=== PATIENT | male | born 1950 | race Caucasian/White ===

== ENCOUNTER 2018-01-07 05:58 | Emergency (ER) ==
[2018-01-07 06:06] VITALS: BP 158/96; TEMP 97.5; BMI 32.5
[2018-01-07] MEDS ORDERED: NORFLEX IM STA (06:20)
[2018-01-07] MEDS ORDERED: TORADOL IM STA (06:21)
--- NOTE | 2018-01-07 07:32 | CT ---
EXAM: CT abdomen pelvis without contrast HISTORY: Right flank pain and trauma COMPARISON: None TECHNIQUE: Serial axial images of the abdomen pelvis were performed from the lung bases through the inferior pelvis without contrast. These were viewed in multiple planes. FINDINGS: Lung bases are clear. Evaluation is limited due to lack of contrast. The liver is unremarkable. The gallbladder is nondis tended. The adrenal glands are unremarkable. The kidneys are unremarkable without stone or hydronep hrosis. There is a low attenuation lesion in the left kidney measuring 1.3 cm in diameter with Houns field units suggestive of a cyst. The spleen is unremarkable. The pancreas is normal. The stomach is mildly distended. The small bowel in the abdomen pelvis is unremarkable. The colon demonstrates few moderate gas diste nded distal colon with no pneumatosis. The appendix is normal. There is no visualized obstruction o r abnormality of the colon. There is no free air or free fluid. There are few scattered mesenteric lymph nodes which are not enlarged. Urinary bladder is distended. The prostate is prominent. There is mild atherosclerotic disease. The osseous structures demonstrate scattered degenerative disease throughout the lumbosacral spine. IMPRESSION: 1. No acute abnormality or injury to account for patient's right flank pain. 2. Low attenuation lesion in the left kidney suggestive of a cyst. 3. Prostate is prominent. 4. 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
--- NOTE | 2018-01-07 07:41 | ED.PDOC ---
General ED Provider: Dr. JAZMYNE WARD Chief Complaint: Back Pain Stated Complaint: Fell few days ago started having back pain on the right flank. Time Seen by Physician: 06:10 Mode of Arrival: Ambulance Information Source: Patient, EMT Nursing and Triage Documentation Reviewed and Agree: Yes Does patient meet sepsis criteria?: No System Inflammatory Response Syndrome: Not Applicable Sepsis Protocol: For patient's 13 years and over: Temp is 96.8 and below OR 101 and greater Pulse >90 BPM Resp >20/minute Acutely Altered Mental Status Are patient's symptoms suggestive of a new infection, such as: -Pneumonia -Skin, Soft Tissue -Endocarditis -UTI -Bone, Joint Infection -Implantable Device -Acute Abdominal Infection -Wound Infection -Meningitis -Blood Stream Catheter Infection -Unknown Musculoskeletal Complaint Exam - Back Pain Complaint/Exam Mechanism of Injury: Reports: Trauma Onset/Duration: 2 days ago Symptoms Are: Still present Timing: Constant Initial Severity: Moderate Current Severity: Severe Location: Reports: Diffuse Character: Reports: Aching, Throbbing Aggravating: Reports: Movements, Lifting, Bending Alleviating: Reports: None Associated Signs and Symptoms: Reports: Flank pain TAD Risk Factors: Reports: None AAA Risk Factors: Reports: None Cauda Equina Risk Factors: Reports: None Epidural Abcess Risk Factors: Reports: None Related Surgical History: Reports: None Focal Tenderness: No Paraspinal Muscle Tenderness: Yes Paraspinal Muscle Spasm: Yes Scoliosis: No Lordosis: No Kyphosis: No SLR Test: Right Negative, Left Negative Hip Motion Testing Pain: Right Negative, Left Negative Focal Weakness: Present: None Focal Sensory Loss: Present: None Gait: Present: Normal Back Picture: 1 - noted tenderness Differential Diagnoses: Strain, Sprain Review of Systems - Review Of Systems Constitutional: Reports: No symptoms Eyes: Reports: No symptoms Ears, Nose, Mouth, Throat: Reports: No symptoms Respiratory: Reports: No symptoms Cardiac: Reports: No symptoms GI: Reports: No symptoms : Reports: No symptoms Musculoskeletal: Reports: Back pain Skin: Reports: No symptoms Neurological: Reports: No symptoms Endocrine: Reports: No symptoms Hematologic/Lymphatic: Reports: No symptoms All Other Systems: Reviewed and Negative Past Medical History - Past Medical History Previously Healthy: Yes Endocrine: Reports: DM 2 Cardiovascular: Reports: Hypertension Respiratory: Reports: None Hematological: Reports: None Gastrointestinal: Reports: None Genitourinary: Reports: None Neuro/Psych: Reports: None Musculoskeletal: Reports: None Cancer: Reports: None - Surgical History General Surgical History: Reports: None - Family History Family History: Reports: None - Social History Smoking Status: Never smoker Hx Substance Use: No Alcohol Screening: Occasionally - Immunizations Tetanus Shot up to Date: Yes Physical Exam - Physical Exam Appearance: Ill-appearing Ill-appearing: Mild Pain Distress: Severe Critical Care Note - Critical Care Note Total Time (mins): 0 Course - Course Orders, Labs, Meds: Orders Category Date Time Status Ketorolac Tromethamine [Toradol] MEDS 01/07/18 06:21 Discontinued 60 mg IM ONCE STA Orphenadrine Citrate [Norflex] MEDS 01/07/18 06:20 Discontinued 60 mg IM ONCE STA CT ABDOMEN/PELVIS WO CONTRAST Stat RADS 01/07/18 06:20 Completed Medications Discontinued Medications Generic Name Dose Route Start Last Admin Trade Name Freq PRN Reason Stop Dose Admin Ketorolac Tromethamine 60 mg 01/07/18 06:21 01/07/18 07:02 Toradol IM 01/07/18 06:22 60 mg ONCE STA Administration Orphenadrine Citrate 60 mg 01/07/18 06:20 01/07/18 07:03 Norflex IM 01/07/18 06:21 60 mg ONCE STA Administration Vital Signs: Temp Pulse Resp BP Pulse Ox 01/07/18 05:59 97.5 F L 83 18 158/96 H 96 Departure - Departure Time of Disposition: 07:37 Disposition: HOME SELF-CARE Discharge Problem: Backache Instructions: Low Back Strain (ED), Muscle Spasm (ED) Condition: Fair Pt referred to PMD for follow-up: Yes IPMP verified?: No Additional Instructions: Take medications as prescribed Follow up with PCP in 3 days. Prescriptions: Hydrocodone/Acetaminophen [[place] 5-325 Tablet] 1 tab PO Q6HR PRN #20 tablet PRN Reason: PAIN Cyclobenzaprine HCl [Flexeril] 10 mg PO DAILY PRN #20 tablet PRN Reason: spasms Allergies/Adverse Reactions: Allergies No Known Allergies Allergy (Unverified 01/07/18 06:02) Home Medications: Ambulatory Orders Cyclobenzaprine HCl [Flexeril] 10 mg PO DAILY PRN #20 tablet 01/07/18 Gabapentin [Neurontin] 300 mg PO BID 01/07/18 Hydrocodone/Acetaminophen [[place] 5-325 Tablet] 1 tab PO Q6HR PRN #20 tablet Lisinopril/Hydrochlorothiazide [Lisinopril-Hctz 10-12.5 mg Tab] 1 each PO BID Meloxicam [Mobic] 15 mg PO DAILY 01/07/18 Metformin HCl [Glucophage] 1,000 mg PO BID 01/07/18 Sildenafil Citrate [Sildenafil] 20 mg PO BID 01/07/18 Temazepam [Restoril] 30 mg PO PRN PRN 01/07/18
== END 2018-01-07 07:50 | disposition home or self-care (01) ==
LOC: ED 05:58
DX: M54.5 Low back pain (principal); M62.830 Muscle spasm of back; W19.XXXA Unspecified fall, initial encounter
CPT/HCPCS: 96372; 99283